=== PATIENT | female | born 1975 | race African-American/Black ===

== ENCOUNTER 2022-12-03 13:26 | Emergency (ER) | payer MEDICAID, OTHER ==
[~2022-12-03] VITALS: Ht 165.1 cm; Wt 102.0 kg
[2022-12-03 13:59] LABS: BASOPHILS % 0.8 % (0.0-2.0); EOSINOPHILS % 0.6 % (0.0-5.0); HEMATOCRIT. 38.2 % (36.0-48.0); HEMOGLOBIN. 13.5 g/dL (12.0-16.0); LYMPHOCYTES % 17.9 % (20.0-50.0); MEAN CORPUSCULAR HEMOGLOBIN 27.2 pg (28.0-32.0); NEUTROPHILS % 75.7 % (40.0-76.0); PLATELET 307 x1000/uL (130-400); RED BLOOD CELL COUNT 4.95 mill/uL (4.2-5.4); RED CELL DISTRIBUTION WIDTH 15.8 % (11.6-14.6)
[2022-12-03 14:03] LABS: CHLORIDE 108 mEq/L (98-107)
[2022-12-03 17:01] LABS: CLARITY URINE CLEAR (CLEAR); COLOR URINE YELLOW (YELLOW); KETONES URINE NEGATIVE (NEGATIVE); LEUKOCYTE ESTERASE URINE NEGATIVE (NEGATIVE); NITRITE URINE NEGATIVE (NEGATIVE); OCCULT BLOOD URINE NEGATIVE (NEGATIVE); PH URINE 6.5 (4.5-8.0); PROTEIN URINE NEGATIVE (NEGATIVE); SPECIFIC GRAVITY URINE 1.023 (1.005-1.030)
[2022-12-03] MEDS ORDERED: OMEP40CA20 MT (20:12)
[2022-12-03] MEDS ORDERED: ACETAMINOPHEN 325MG TABLET PO ONE (20:15)
[2022-12-03 20:19] VITALS: BP 135/68
== END 2022-12-03 20:51 | disposition home or self-care (01) ==
LOC: ER 13:26
DX: R10.32 Left lower quadrant pain (principal); Z90.710 Acquired absence of both cervix and uterus
CPT/HCPCS: 36415; 74176; 80053; 81003; 81025; 83690; 84484; 85025; 93005; 99285; Z7610